=== PATIENT | male | born 1975 | race Two or more races ===

== ENCOUNTER 2023-03-08 17:16 | Emergency (ER) | payer OTHER ==
[2023-03-08 17:29] VITALS: BP 132/81; PULSE 83; RESP 18; TEMP 98.1; BMI 24.5
[2023-03-08 18:16] LABS: HEMATOCRIT 46.2 % (35.4-49); HEMOGLOBIN 15.8 G/dL (11.7-16.9); MCH 29.8 pg (25.7-33.7); MCHC 34.2 g/dl (32.0-35.9); MEAN CELL VOLUME 87.1 fl (80-96); MEAN PLT VOLUME 10.2 fl (7.5-11.1); PLATELET COUNT 193.7 10^3/uL (134-434); RDW 13.6 % (11.9-15.9); WHITE BLOOD COUNT 7.3 10^3/uL (4.0-10.8)
[2023-03-08 18:41] LABS: PLATELET ESTIMATE ADEQUATE
[2023-03-08 18:46] LABS: ALBUMIN 4.9 g/dl (3.4-5.0); ALK PHOS 64 U/L (45-117); ANION GAP 7 MMOL/L (8-16); BILIRUBIN,TOTAL 0.4 mg/dl (0.2-1); BLOOD UREA NITROGEN 17.7 mg/dl (7-18); CALCIUM 10.1 mg/dl (8.5-10.1); CHLORIDE 100 mmol/L (98-107); CO2 29 mmol/L (21-32); GLUCOSE,RANDOM 96 mg/dl (74-106); SGOT/AST 27.1 U/L (15-37); SGPT/ALT 50.6 U/L (7-52); SODIUM 136 mmol/L (136-145); TOT PROT 7.3 g/dl (6.4-8.2)
== END 2023-03-08 19:10 | disposition home or self-care (01) ==
LOC: FER 17:16
DX: R07.89 Other chest pain (principal)
CPT/HCPCS: 36415; 80053; 84484; 85027; 93005; 99284-25